=== PATIENT | female | born 1990 | race Caucasian/White ===

== ENCOUNTER 2018-03-26 22:50 | Emergency (ER) | payer OTHER ==
[2018-03-27] MEDS: KETOROLAC 30 MG INJ IM (00:41)
[2018-03-27 00:42] LABS: URINE BLOOD (Dip) POC Negative (NEGATIVE); URINE GLUCOSE (Dip) POC Negative (NEGATIVE); URINE KETONES (Dip) POC Trace (NEGATIVE); URINE LEUKOCYTE EST (Dip) POC Negative (NEGATIVE); URINE NITRITE (Dip) POC Negative (NEGATIVE); URINE TOTAL PROTEIN POC 1+ (NEGATIVE)
[2018-03-27 00:42] LABS: URINE PH (Dip) POC 8.5 (5.0-8.5)
== END 2018-03-27 02:35 | disposition home or self-care (01) ==
LOC: FTE 22:50
DX: M54.42 Lumbago with sciatica, left side (principal)
CPT/HCPCS: 72100; 81003; 81025; 96372; 99284-25